=== PATIENT | female | born 1980 | race Two or more races ===

== ENCOUNTER 2016-04-26 07:58 | Emergency (ER) | payer MEDICAID ==
[2016-04-26] MEDS ORDERED: KETOROLAC TROMETHAMINE 30 MG/ML 1 ML VIAL ONE (08:40)
[2016-04-26] MEDS ORDERED: ONDANSETRON 4 MG/2ML 2 ML VIAL ONE (08:40)
[2016-04-26 08:52] LABS: ABSOLUTE NEUTROPHIL COUNT 3.7 K/mm3 (1.8-7.7); BASO % 0.4 % (0.2-1.0); EOS # 0.1 (0.0-0.5); EOS % 1.7 % (0.9-2.9); HEMOGLOBIN 13.1 gm/l (12.0-16.0); IMM NEUT% 0.3 % (0-1); LYMPH # 2.5 (1.0-4.8); LYMPH % 36.4 % (15-45); MEAN CORPUSCULAR HEMOGLOBIN 28.2 pg (27.0-31.0); MEAN CORPUSCULAR HGB CONC 32.8 g/dl (33.0-37.0); MEAN PLATELET VOLUME 9.9 fl (7.4-10.4); MONO # 0.5 (0.0-0.8); NEUT % 54.2 % (43-75); PLATELET COUNT 296 K/mm3 (130-400); RED CELL DISTRIBUTION WIDTH 11.7 % (11.5-14.5)
[2016-04-26 09:03] LABS: SPECIFIC GRAVITY 1.025 (1.001-1.030); URINE BILIRUBIN NEGATIVE (NEGATIVE); URINE BLOOD TRACE (NEGATIVE); URINE GLUCOSE (UA) NEGATIVE (NEGATIVE); URINE LEUKOCYTE ESTERASE NEGATIVE (NEGATIVE); URINE NITRITE NEGATIVE (NEGATIVE); URINE PROTEIN NEGATIVE (NEGATIVE); URINE UROBILINOGEN NORMAL (0-1 mg/dl)
[2016-04-26 09:03] LABS: ALB/GLOB RATIO 1.3 (>1.0); ALBUMIN 4.3 gm/dL (3.5-5.7); CALCIUM 9.4 mg/dL (8.6-10.3)
[2016-04-26 09:05] LABS: HCG,QUALITATIVE URINE NEGATIVE
[2016-04-26 09:06] LABS: URINE APPEARANCE CLEAR; URINE COLOR YELLOW
[2016-04-26 09:24] LABS: URINE RBC 0 /hpf; URINE WBC NEG /hpf
[2016-04-26 09:25] LABS: URINE BACTERIA RARE
--- NOTE | 2016-04-26 09:48 | CT ---
Exam: CT abdomen and pelvis without contrast COMPARISON: Lumbar spine radiographs 09/26/2014 INDICATION: Left flank pain. TECHNIQUE: CT examination of the abdomen and pelvis was obtained without contrast using a renal stone protocol. FINDINGS: There is no hydronephrosis or perinephric stranding. No calculus is identified within either kidney, ureter or bladder. The bowel, including the appendix, is unremarkable and there is no bowel obstruction, free air or free intraperitoneal fluid. Uterus and ovaries are present and within normal limits on this noncontrast exam. There is no pelvic lymphadenopathy or fluid collection. Mild hepatic steatosis. The pancreas, spleen, adrenal glands and gallbladder are unremarkable on this noncontrast exam. Lung bases are clear. No worrisome lytic or blastic osseous lesion is identified. Mild degenerative disc disease is present at L4-5, not significantly changed since the 2015 radiographs. IMPRESSION: No acute findings identified to explain left flank pain. Report was uploaded to the EMR at 0943 hours 04/26/2016.
== END 2016-04-26 10:57 | disposition home or self-care (01) ==
LOC: ED 07:58
DX: R10.9 Unspecified abdominal pain (principal); E78.00 Pure hypercholesterolemia, unspecified
CPT/HCPCS: 83690; 81025; 85025; 80053; 81001; 74176; 96375; 99283; 96374; 99284; J1885; J2405